=== PATIENT | male | born 1975 | race Caucasian/White ===

== ENCOUNTER 2018-02-12 | Emergency (ER) | payer BC ==
[2018-02-12 00:16] VITALS: RESP 20; TEMP 97.3
[2018-02-12] MEDS ORDERED: PHENYLEPHRINE HCL 0.5% SPR NAS ONE ×2 (00:29→00:52)
[2018-02-12 00:55] VITALS: BP 161/105; PULSE 81; O2SAT 99
== END 2018-02-12 01:03 | disposition home or self-care (01) ==
LOC: ED
DX: R04.0 Epistaxis (principal)
CPT/HCPCS: 99282; 99283; A9270-GY